=== PATIENT | male | born 1950 | race Caucasian/White ===

== ENCOUNTER 2024-07-04 21:23 | Emergency (ER) | payer MEDICARE ==
[2024-07-04 22:03] VITALS: TEMP 98.3
--- NOTE | 2024-07-04 22:20 | ERPHSYRPT ---
- History of Present Illness Time Seen by Provider: 07/04/24 22:15 Source: patient Exam Limitations: no limitations Patient Subjective Stated Complaint: fell onto left side today Triage Nursing Assessment: Pt ambulated into ER without diff, at bedside. Pt c/o left sided rib pain after a fall today. Pt states, "I was working on a lawnmower and had a wrench that slipped off a bolt, causing him to fall onto his left side from a squatting position". Pt denies hitting his head or any loc. Pt c/o pain when taking a deep breath. No bruising or deformity noted to left side of ribs. Pt c/o tenderness to left mid to low rib area. Physician History: 73-year-old male presents to our ED for evaluation of pain to his left lateral and lower ribs. Patient states he was working on a lawnmower. Patient states the wrench slipped off causing him to fall onto his left side. Patient injured his left ribs. The area is very tender now pain when he takes a deep breath. No chest pain or shortness of breath. No nausea vomiting or diaphoresis. Symptoms are mild to moderate in intensity. Pain worse with palpation and movement. Pain improved with rest. Patient declined pain medication. Patient voices no other complaints or concerns at this time. Portions of this note were created with voice recognition technology. There may be grammatical, spelling, punctuation or sound alike errors Timing/Duration: today Severity: moderate Modifying Factors: Improves With: movement Associated Symptoms: denies symptoms Allergies/Adverse Reactions: No Known Drug Allergies Allergy (Unverified 07/04/24 22:11) Home Medications: No Reportable Medications [No Reported Medications] 07/04/24 [History] Hx Tetanus, Diphtheria Vaccination/Date Given: No Hx Influenza Vaccination/Date Given: Yes (fall 2022) Hx Pneumococcal Vaccination/Date Given: No Travel Risk - International Travel Have you traveled outside of the country in past 3 weeks: No - Emerging Infectious Disease Are you exhibiting symptoms associated with any current EIDs: Yes - Review of Systems Constitutional: No Symptoms, No Fever, No Chills Eyes: No Symptoms Ears, Nose, & Throat: No Symptoms Respiratory: No Symptoms, No Cough, No Dyspnea Cardiac: No Symptoms, No Chest Pain, No Edema, No Syncope Abdominal/Gastrointestinal: No Symptoms, No Abdominal Pain, No Nausea, No Vomiting, No Diarrhea Genitourinary Symptoms: No Symptoms, No Dysuria Musculoskeletal: No Symptoms, No Back Pain, No Neck Pain Skin: No Symptoms, No Rash Neurological: No Symptoms, No Dizziness, No Focal Weakness, No Sensory Changes Psychological: No Symptoms Endocrine: No Symptoms Hematologic/Lymphatic: No Symptoms Immunological/Allergic: No Symptoms All Other Systems: Reviewed and Negative - Past Medical History Pertinent Past Medical History: Yes Neurological History: No Pertinent History ENT History: No Pertinent History Cardiac History: High Cholesterol Respiratory History: Sleep Apnea Endocrine Medical History: No Pertinent History Musculoskeletal History: Arthritis GI Medical History: No Pertinent History, Hernia History: No Pertinent History Psycho-Social History: No Pertinent History Male Reproductive Disorders: No Pertinent History - Past Surgical History Past Surgical History: Yes Gastrointestinal: Hernia Repair - Social History Smoking Status: Former smoker Exposure to second hand smoke: No Drug Use: none - Social Determinants of Health Will the patient participate in the screening: Yes Do you worry about a steady place to live?: No Do you have any problems with any of the following?: No known problems In the past 12 months,have you had to go without utilities?: No Transportation Issues: No Has anyone in your support network made you feel unsafe?: No Have you or anyone in your house had to go without enough: No - Nursing Vital Signs Nursing Vital Signs: Initial Vital Signs Temperature 98.3 F 07/04/24 22:00 Pulse Rate 63 07/04/24 22:00 Respiratory Rate 18 07/04/24 22:00 Blood Pressure 146/62 07/04/24 22:00 O2 Sat by Pulse Oximetry 98 07/04/24 22:00 Pain Scale Pain Intensity 7 - Physical Exam General Appearance: no apparent distress, alert Eye Exam: PERRL/EOMI, eyes nml inspection Ears, Nose, Throat Exam: normal ENT inspection, TMs normal, pharynx normal, moist mucous membranes Neck Exam: normal inspection, non-tender, supple, full range of motion Respiratory Exam: normal breath sounds, lungs clear, other (Tenderness to palpation left ribs. Overlying soft tissue intact. No obvious signs of trauma. No bruising no lacerations. No cellulitis), No respiratory distress Cardiovascular Exam: regular rate/rhythm, normal heart sounds, normal peripheral pulses Gastrointestinal/Abdomen Exam: soft, normal bowel sounds, No tenderness, No mass Back Exam: normal inspection, normal range of motion, No CVA tenderness, No vertebral tenderness Extremity Exam: normal inspection, normal range of motion, pelvis stable Neurologic Exam: alert, oriented x 3, cooperative, normal mood/affect, nml cerebellar function, nml station & gait, sensation nml, No motor deficits Skin Exam: normal color, warm, dry, No rash Lymphatic Exam: No adenopathy SpO2 Interpretation: normal SpO2: 98 O2 Delivery: Room Air - Course Nursing assessment & vital signs reviewed: Yes Ordered Tests: Active Orders 24 hr Category Date Time Status CHEST WITHOUT CONTRAST [CT] Stat Exams 07/04/24 22:16 Completed UA W/RFX UR CULTURE Stat Lab 07/05/24 00:02 Completed Incentive Spirometry Q1H RT 07/05/24 00:34 Active Lab/Rad Data: Laboratory Results 07/05/24 Range/Units 00:02 Urine Color Yellow (Yellow) Urine Appearance Clear (Clear) Urine pH 5.5 (4.6-8.0) Ur Specific Howe 1.010 (1.005-1.030) Urine Protein Negative (Negative) Urine Glucose (UA) Negative (Negative) mg/dL Urine Ketones Negative (Negative) Urine Blood Negative (Negative) Urine Nitrite Negative (Negative) Urine Bilirubin Negative (Negative) Urine Urobilinogen 0.2 (0.2) mg/dL Ur Leukocyte Esterase Negative (Negative) U Hyaline Cast (Auto) NONE SEEN (0-2) /LPF Urine Microscopic RBC 0-2 (0-5) /HPF Urine Microscopic WBC 0-2 (0-5) /HPF Ur Epithelial Cells None Seen (None Seen) /HPF Urine Bacteria None Seen (None Seen) /HPF Urine Culture Reflexed NO (NO) - Progress Progress: improved Progress Note: 73-year-old male presents to our emergency department for evaluation of rib pain after a ground-level fall. CT scan reveals a left fourth rib fracture nondisplaced. Incidental bilateral perinephric fat stranding observed. Urinalysis ordered. No UTI observed. The etiology of this incidental finding is unclear. However we advised patient to follow-up with her primary care doctor and consider bilateral renal ultrasound for further evaluation. Patient resting comfortably. No active pain. Incentive spirometer provided. Patient continues to decline pain medication. However he states he will take Tylenol Motrin at home as needed for pain control. Patient will follow-up with his primary care doctor as discussed. at bedside. They voiced no other complaints or concerns at this time. Portions of this note were created with voice recognition technology. There may be grammatical, spelling, punctuation or sound alike errors Complexity of problem addressed is moderate acute complicated. No critical care time. Complex of data reviewed and analyzed is moderate. Test ordered test reviewed results analyzed and correlated clinically with history and physical exam. Risk of complication and or risk of morbidity/mortality patient management is low. Vital stable. Time spent to discharge patient approximately 20 minutes. Plan of care established for shared decision making. No social determinants of health present to impede follow-up. Portions of this note were created with voice recognition technology. There may be grammatical, spelling, punctuation or sound alike errors 07/05/24 00:42 Counseled pt/family regarding: lab results, diagnosis, need for follow-up, rad results - Departure Departure Disposition: Home Clinical Impression: Left rib fracture, Calcified lung nodule, Bilateral perinephric stranding Condition: Stable Critical Care Time: No Referrals: ALESSIA PHILLIP [ACTIVE STAFF] - Follow up/PCP as directed Additional Instructions: Please follow-up with your family doctor within 48 hours for reevaluation. Please inform your doctor of the bilateral perinephric fat stranding for further evaluation and treatment Discharge/Care Plan TIMMY PHELAN was seen on 07/04/24 in the Emergency Room. The patient was counseled regarding Diagnosis,Lab results, Imaging studies, need for follow up and when to return to the Emergency Room. Prescriptions given: Discharge Note I have spoken with the patient and/or caregivers. I have explained the patient's condition, diagnosis and treatment plan based on the information available to me at this time. I have answered the patient's and/or caregiver's questions and addressed any concerns. The patient and/or caregivers have as good understanding of the patient's diagnosis, condition and treatment plan as can be expected at this point. The vital signs have been stable. The patient's condition is stable and appropriate for discharge from the emergency department. The patient will pursue further outpatient evaluation with the primary care physician or other designated or consulting physician as outlined in the discharge instructions. The patient and/or caregivers are agreeable to this plan of care and follow-up instructions have been explained in detail. The patient and/or caregivers have received these instruction. The patient/and or caregivers are aware that any significant change in condition or worsening of symptoms should prompt an immediate return to this or the closest emergency department or call 911.
--- NOTE | 2024-07-04 23:18 | XRAY ---
CLINICAL HISTORY: Lt. rib pain. Trauma COMPARISON: None. TECHNIQUE: Contiguous axial CT images of the chest were acquired without administration of intravenous contrast. Coronal and sagittal reconstructions were obtained. One of the following dose reduction techniques was utilized for this exam: Automated exposure control, adjustment of the mA and/or kV according to patient size, use of iterative reconstruction. FINDINGS: Lungs: No evidence of pneumothorax at present. A 5 mm calcified nodule in left lingula along the oblique fissure. Minimal basal atelectatic changes were noted. No pleural effusion or pleural thickening. Mediastinum: Few millimetric calcified mediastinal nodes. The heart size is within normal limits. Trachea and Main Bronchi: The trachea and main bronchi are patent without evidence of obstruction or abnormality. Chest Wall: The chest wall is unremarkable with no evidence of soft tissue or bony abnormalities. Upper Abdomen: Incidental tiny calcific foci in liver and bilateral nonspecific perinephric fat stranding. Bones: Slight cortical stepping of left fourth rib at lateral aspect, suspicious of fracture. Series 3, Image 19/70 Degenerative changes in thoracic spine were noted. IMPRESSION: 1. Slight cortical stepping of left fourth rib in lateral aspect, suspicious of fracture. Recommended clinical correlation with point tenderness 2. No evidence of pneumothorax at present. [facility] ER was called at [phone] at 10:09 PM [employer], 07/04/2024, Frandy Chapa was informed regarding the presence of important medical findings in the report. Electronically Signed by: Ruben Krause MD. (07/04/2024 23:15:04 EDT)
[2024-07-05 00:19] VITALS: BP 129/65; PULSE 60; RESP 20
[2024-07-05 00:28] LABS: Appearance Clear (Clear); Bacteria None Seen /HPF (None Seen); Bilirubin Negative (Negative); Blood Negative (Negative); Epithelial Cells None Seen /HPF (None Seen); Glucose, Urine Negative (Negative); Hyaline Casts NONE SEEN /LPF (0-2); Ketones Negative (Negative); Leukocyte Esterase Negative (Negative); Nitrite Negative (Negative); Ph 5.5 (4.6-8.0); Protein,Urine Dip Negative (Negative); RBC 0-2 /HPF (0-5); Urobilinogen 0.2 mg/dL (0.2); WBC 0-2 /HPF (0-5)
[2024-07-05 00:31] LABS: ADD URINE CULTURE? NO (NO)
[2024-07-05 00:44] VITALS: O2SAT 98
== END 2024-07-05 00:46 | disposition home or self-care (01) ==
LOC: ED 21:23
DX: S22.32XA Fracture of one rib, left side, initial encounter for closed fracture (principal); W01.0XXA Fall on same level from slipping, tripping and stumbling without subsequent striking against object, initial encounter; R91.1 Solitary pulmonary nodule; R93.422 Abnormal radiologic findings on diagnostic imaging of left kidney; R93.421 Abnormal radiologic findings on diagnostic imaging of right kidney; R07.81 Pleurodynia; E78.5 Hyperlipidemia, unspecified
CPT/HCPCS: 71250; 81001; 99283